=== PATIENT | female | born 1980 | race Caucasian/White ===

== ENCOUNTER 2020-05-06 20:20 | Emergency (ER) | payer SELFPAY ==
[~2020-05-06] VITALS: Ht 157.5 cm; Wt 95.0 kg
[2020-05-06] MEDS ORDERED: LORazepam 1MG TABLET ONE (21:12)
[2020-05-06] MEDS ORDERED: LORazepam 1MG TABLET PO ONE (21:30)
[2020-05-06] MEDS ORDERED: IBUPROFEN 800 MG TABLET ONE (21:44)
[2020-05-06 21:48] VITALS: BP 168/58
[2020-05-06] MEDS ORDERED: IBUPROFEN 800 MG TABLET PO ONE (22:00)
== END 2020-05-06 21:51 | disposition home or self-care (01) ==
LOC: ED 21:23
DX: F23 Brief psychotic disorder (principal); Z76.0 Encounter for issue of repeat prescription
CPT/HCPCS: 99283